=== PATIENT | female | born 1995 ===

== ENCOUNTER → 2020-04-05 | Emergency (ER) | payer SELFPAY ==
[~2020-04-05] VITALS: Ht 160 cm; Wt 86.4 kg
[2020-04-05 22:18] VITALS: BP 107/68
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
== END | disposition left against medical advice (07) ==
LOC: ER 21:39
DX: S00.83XA Contusion of other part of head, initial encounter (principal); Y08.89XA Assault by other specified means, initial encounter; Y93.89 Activity, other specified; Y92.89 Other specified places as the place of occurrence of the external cause; Y99.8 Other external cause status
CPT/HCPCS: 81025; 99282